=== PATIENT | female | born 1960 | race Caucasian/White ===

== ENCOUNTER 2017-02-09 20:43 | Inpatient (IN) | payer OTHER ==
[~2017-02-09] VITALS: Ht 165.1 cm; Wt 73.5 kg
--- NOTE | ~2017-02-09 | HP ---
History And Physical [id number] [place]. [address] NAME: CINDY WAN : 64 STATUS : ADM IN [facility]#: [id number] AGE: 56 ADM/REG DATE : 02/10/17 MR#: [id number] REPORT SERV DATE: 02/10/17 DICTATED BY: LOTUS AVALOS DATE: 02/10/17 REPORT STATUS : Draft TRANSCRIBED BY: DEMETRICE DATE: 02/10/17 DATE OF ADMISSION: 02/09/2017 CHIEF COMPLAINT: Coffee-grounds emesis and black stool. HISTORY OF PRESENT ILLNESS: A 56-year-old white female, on Sunday night started vomiting coffee-grounds emesis, then she noticed her stools became blackish. She thus presented to the emergency room. She has had a history of ulcers in the past. She stated she believes she had an endoscopy two months ago. She is unclear of the findings. She is on NSAIDs. PAST SURGICAL HISTORY: Rib injury, thyroid nodule, cholecystectomy, appendectomy, and ovarian cysts. ALLERGIES: SHE HAS NO KNOWN DRUG ALLERGIES. SOCIAL HISTORY: Quit smoking in 1991. No alcohol. She is a postwoman. MEDICATIONS: The patient is currently on Artificial Tears one drop daily, aspirin 650 mg b.i.d., headache powder three times a day, B-complex vitamins after lunch, cholecalciferol one tab after lunch, Lexapro 20 mg after lunch, levothyroxine 75 mg for breakfast, Prilosec 20 mg b.i.d., vitamin E one tab after lunch, lysine, and phendimetrazine two tablets t.i.d. FAMILY HISTORY: Mom of aspiration pneumonia and dad of heart attack at age 42. REVIEW OF SYSTEMS: CONSTITUTIONAL: No fever, sweats, or rigors. She has had fatigue. EYES: No blurred or double vision, vision loss, or glaucoma. HEENT: No headache, hearing loss, and tinnitus. CARDIOVASCULAR: No chest pain, palpitations, syncope, or edema. There has been some dyspnea on exertion. RESPIRATORY: No cough, wheezing, or pleuritic pain. GASTROINTESTINAL: She has had some nausea or vomiting. She has had some hematemesis, some abdominal pain. She had some melena. No hematochezia. MUSCULOSKELETAL: She does have some arthralgia, arthritis. INTEGUMENT: No rash or suspicious skin lesions. NEUROLOGIC: No memory loss, gait disturbance, or weakness. HEMATOLOGIC: She has had some anemia. She has had some iron deficiency. PSYCHIATRIC: No depression, bipolar, or anxiety. : No dysuria, hematuria, or nephrolithiasis. ENDOCRINE: There is no diabetes. There is some thyroid disease, increased cholesterol. PHYSICAL EXAMINATION: VITAL SIGNS: Blood pressure is 126/70, temperature 97.8, pulse 96, respiratory rate 20, and O2 saturation 98% on room air. CONSTITUTIONAL: Alert and appropriate. PSYCHIATRIC: Oriented x3. Memory intact. Affect appropriate. History And Physical [address] [address] NAME: CINDY WAN : 64 STATUS : ADM IN [facility]#: [id number] AGE: 56 ADM/REG DATE : 02/10/17 MR#: [id number] REPORT SERV DATE: 02/10/17 DICTATED BY: LOTUS AVALOS DATE: 02/10/17 REPORT STATUS : Draft TRANSCRIBED BY: DEMETRICE DATE: 02/10/17 HEENT: Atraumatic, normocephalic. Oral palate without lesion. EYES: Pupils reactive, anicteric. Conjunctivae clear. NECK: No adenopathy. Supple. No thyromegaly or masses. RESPIRATORY: Clear to auscultation. No chest wall tenderness. CARDIOVASCULAR: Regular rate and rhythm. No murmurs. ABDOMEN: Soft, nontender. No masses. SKIN: No rash or suspicious lesions. NEUROLOGICAL: Cranial nerves 2 through 12 intact. Deep tendon reflexes symmetric. LYMPHATIC: No adenopathy in the neck, axilla, or femoral region. MUSCULOSKELETAL: Range of motion intact to upper and lower extremities. DATA: Hemoglobin 10, platelets 306. White count 10.6. Sodium 141, potassium 4.1, BUN 19, creatinine 1.09, glucose 101. On the 11 of May, hemoglobin 13.8. CT abdomen and pelvis, nothing acute. IMPRESSION/PLAN: 1. Acute blood loss anemia. 2. Likely upper gastrointestinal bleed, IV Protonix. GI consult. NSAID avoidance. MAU/MODL Lotus Avalos MD / [id number] CC: Simin Kelley
--- NOTE | ~2017-02-09 | CN ---
Consultation Report [facility] [address] [place]. [address] NAME: CINDY WAN : 64 STATUS : DIS IN PAT#: [id number] AGE: 56 ADM/REG DATE : 02/10/17 MR#: [id number] REPORT SERV DATE: 02/12/17 DICTATED BY: TELLO HAYES DATE: 02/10/17 REPORT STATUS : Draft TRANSCRIBED BY: DEMETRICE DATE: 02/10/17 GI CONSULTATION DATE OF CONSULTATION: CHIEF COMPLAINT: Black stools. HISTORY OF PRESENT ILLNESS: This is a 56-year-old, female, who is in her good general health until Sunday when she started to feel a bit fatigued. She states that she had four episodes of vomitus, Sunday morning, was black thick looking to begin with and then progressed to an orangish black, have little bit of epigastric burning at that time, but there are no other complaints. She denies any fever, chills. She has felt slightly weak and dizzy and a little bit sweaty at that time. Denies any chest pain or shortness of breath. morning, she states that she had four loose black stools quite tarry in appearance and ranged from dark black to just black. Since then, on Sunday, she had two formed black stools and has had no further abdominal pain. The patient states that she had a thoracic strain/rib cage injury and had been on aspirin 325 mg four times a day and some sort of headache powders as well. There has been no other physical complaint. The patient states that she had an upper endoscopy with Dr. Alvarado approximately two months ago and was found to have peptic ulcer disease. She states is otherwise was unremarkable. At this time, unable to retrieve the report. PAST MEDICAL HISTORY: Significant for peptic ulcer disease, hypothyroidism, depression, and recent thoracic strain. PAST SURGICAL HISTORY: Significant for cholecystectomy, appendectomy, surgery for ovarian cyst, thyroid nodule. ALLERGIES: THERE ARE NO KNOWN DRUG ALLERGIES. SOCIAL HISTORY: She quit smoking in 1991. Denies any alcohol or illicit drug use. CURRENT MEDICATIONS: Aspirin 325 mg for daily, headache powder three times a day, over the counter vitamins, cholecalciferol one tab after lunch, Lexapro, levothyroxine, Prilosec, phendimetrazine. FAMILY HISTORY: From the GI point of view is noncontributory. REVIEW OF SYSTEMS: A 10-point review of systems was done, unless except as noted above was unremarkable. PHYSICAL EXAMINATION: Consultation Report [facility] [address] [place]. [address] NAME: CINDY WAN : 64 STATUS : DIS IN PAT#: [id number] AGE: 56 ADM/REG DATE : 02/10/17 MR#: [id number] REPORT SERV DATE: 02/12/17 DICTATED BY: TELLO HAYES DATE: 02/10/17 REPORT STATUS : Draft TRANSCRIBED BY: MODL DATE: 02/10/17 VITAL SIGNS: Blood pressure 123/57, pulse 83, respirations 16, O2 sats 96%. GENERAL APPEARANCE: Patient is alert, well hydrated, nontoxic appearing. Consistent unusual rashes are warm and dry. She is oriented x3. HEENT: Mucous membranes are moist. LUNGS: Clear to auscultation. HEART: Rate regular without murmur, rub, or gallop. ABDOMEN: Soft, nontender. Bowel sounds within normal limits x4. No mass or hepatosplenomegaly appreciated. EXTREMITIES: There is no pedal edema. DATA: CT of her abdomen and pelvis were essentially unremarkable. Her hemoglobin is 8.7, hematocrit 25.7. On admission, her hemoglobin was 10, last chart note dictated of hemoglobin was April of 2015 was 13.8. Pro time 13.3, INR 1, otherwise her white blood count was 5.9, RBCs 2.88. CMP was essentially unremarkable, except for calcium slightly low at 8.2. Her alkaline phosphatase was 135. Her salicylate level was 3.5. Liver enzymes within normal limits. Discussed case with Dr. Hayes. IMPRESSION: 1. Acute blood loss anemia secondary to upper gastrointestinal bleed. 2. Melena. 3. History of peptic ulcer disease. 4. Hypothyroidism. 5. Depression. PLAN: Discussed with patient and her . Will get consent for upper endoscopy to be done now. We will need to continue to monitor H and H. Will not transfuse at this time, but again will need to continue monitored as already ordered. We will change her Protonix or to give her additional 40 mg IV now and Protonix drip of 8 mg/hour. We will continue to follow this patient. DICTATED BY: SYED Marroquin/DEMETRICE Tello Hayes M.D. / [id number] CC: Lance Pickens MD Consultation Report [address] [place]. [address] NAME: CINDY WAN : 64 STATUS : DIS IN PAT#: [id number] AGE: 56 ADM/REG DATE : 02/10/17 MR#: [id number] REPORT SERV DATE: 02/12/17 DICTATED BY: TELLO HAYES DATE: 02/10/17 REPORT STATUS : Draft TRANSCRIBED BY: ALEXANDERL DATE: 02/10/17 Selam Kelley NP
--- NOTE | ~2017-02-09 | DS ---
Discharge Summary [facility] [address] [place]. [address] NAME: CINDY WAN : 64 STATUS : DIS IN PAT#: [id number] AGE: 56 ADM/REG DATE : 02/10/17 MR#: [id number] REPORT SERV DATE: 02/12/17 DICTATED BY: LANCE RUFFIN DATE: 02/11/17 REPORT STATUS : Draft TRANSCRIBED BY: MODNani DATE: 02/11/17 ADMISSION DATE: 02/10/2017 DISCHARGE DATE: 02/11/2017 DISCHARGE DIAGNOSES: 1. Acute blood loss anemia secondary to gastrointestinal bleed secondary to gastric ulcer. 2. Tension headache, resolved. 3. Hypothyroidism. 4. Depression. PERTINENT IMAGING AND PROCEDURES: EGD performed 02/10/2017, impression: Normal examined duodenum. Gastric ulcer biopsied, normal cardia, gastric body, and gastric fundus. Normal esophagus. HOSPITAL COURSE: Please refer to the history and physical from the admitting physician for a full history of this patient. Briefly, the patient presented with hematemesis and melena in the setting of extensive NSAID use. She was started on a Protonix drip appropriately. GI was consulted, and she within 24 hours underwent EGD which revealed a gastric ulcer that was biopsied, it was felt that most likely her ulcer is secondary to her significant NSAID use. She was continued on Protonix, transitioned over to IV dosing b.i.d. and today will be transitioned to p.o. dosing b.i.d. which she will continue until followup with GI. She has had no further bleeding since admission and her hemoglobin has been stable. Her hemoglobin on admission was 11.8, and on the day of discharge, it is 10.1. Per GI, she is stable for discharge to home and therefore will be discharged today with b.i.d. Protonix dosing with GI followup and repeat EGD in two to four weeks [address] Alvarado. She has been counseled extensively on the need to hold any further NSAIDs. She expressed understanding. The patient was continued on her home medications for hypothyroidism and depression. She did develop a headache after EGD that was diagnosed as a tension headache and treated as such with resolution. DISCHARGE MEDICATIONS: Lexapro 20 mg p.o. after lunch, Synthroid 75 mcg p.o. before breakfast, Protonix 40 mg p.o. twice per day, vitamin D3 of 1000 units one tab p.o. after lunch, vitamin E one tab p.o. after lunch, artificial tears p.r.n. daily, vitamin B tablet one tab p.o. after lunch, and lysine one capsule p.o. after lunch. FOLLOWUP: As mentioned prior, the patient will be discharged to home with b.i.d. dosing of Protonix and GI followup in two to four [address] Alvarado, at which time, discussion will take place regarding planning of a repeat EGD to ensure healing of the aforementioned gastric ulcer. As mentioned above, the patient was counseled extensively by the Hospitalist Service as well as the GI Service about the need to avoid future NSAIDs. Approximately 25 minutes were spent coordinating the discharge of this patient. Discharge Summary [address] [address] NAME: CINDY WAN : 64 STATUS : DIS IN PAT#: [id number] AGE: 56 ADM/REG DATE : 02/10/17 MR#: [id number] REPORT SERV DATE: 02/12/17 DICTATED BY: LANCE RUFFIN DATE: 02/11/17 REPORT STATUS : Draft TRANSCRIBED BY: DEMETRICE DATE: 02/11/17 SHA/DEMETRICE Lance Ruffin MD / [id number] CC: MD CELESTE Hartman CINDY MARIE
--- NOTE | ~2017-02-09 | EGD ---
EGD REPORT [facility] [address] [place] [address] NAME: CINDY WAN : 64 STATUS : ADM IN PAT#: [id number] AGE: 56 ADM/REG DATE : 02/10/17 MR#: [id number] REPORT SERV DATE: 02/10/17 DICTATED BY: JOSÉ MANUEL BERNARD DATE: 02/10/17 REPORT STATUS : Draft [facility]ANS[facility]: [facility] DATE: 02/10/17 Endoscopy Center Patient Name: Cindy Wan Date of : 1960 Attending MD: JOSÉ MANUEL BERNARD MD Procedure Date No Time: 02/10/2017 Procedure: Upper GI endoscopy Indications: Melena; Goody Powders; ASA; Prilosec 20mg daily. Patient Profile: Informed consent was obtained from the patient by me prior to the procedure. Risks, benefits, and alternatives were reviewed including the risk of bleeding, perforation, infection, reaction to medicine, missed lesion, and cardiopulmonary complications. Referring MD: MICHAEL PANDA MD Medicines: Monitored Anesthesia Care Complications: No immediate complications. Procedure: Pre-Anesthesia Assessment: - ASA Grade Assessment: III - A patient with severe systemic disease. After obtaining informed consent, the endoscope was passed under direct vision. Throughout the procedure, the patient's blood pressure, pulse, and oxygen saturations were monitored continuously. The GIF [id number] was introduced through the mouth, and advanced to the second part of duodenum. The endoscope was withdrawn with careful examination all mucosal surfaces including retroflexion stomach. The upper GI endoscopy was accomplished without difficulty. The patient tolerated the procedure well. Findings: The examined duodenum was normal. One cratered gastric ulcer with pigmented material but no VV was found at the pylorus. The lesion was 10 mm in largest dimension. Biopsies were taken with a cold forceps for histology from edges. The cardia, gastric body and gastric fundus (on retroflexion) were normal. The examined esophagus was normal except distal Schatzki ring. The esophagus and gastroesophageal junction were examined with white light. There was no visual evidence of Nam's esophagus. Impression: - Normal examined duodenum. - Gastric ulcer. Biopsied. - Normal cardia, gastric body and gastric fundus. - Normal esophagus. EGD REPORT [address] [address] NAME: CINDY WAN : 64 STATUS : ADM IN [facility]#: [id number] AGE: 56 ADM/REG DATE : 02/10/17 MR#: [id number] REPORT SERV DATE: 02/10/17 DICTATED BY: JOSÉ MANUEL BERNARD DATE: 02/10/17 REPORT STATUS : Draft TRANSCRIBED BY: [employer] DATE: 02/10/17 Recommendation: - Await pathology results. - Stop NSAID's. - Pantoprazole 40mg bid. - EGD 2-[address] Panda. Procedure Code(s): --- Professional --- 50858, Esophagogastroduodenoscopy, flexible, transoral; with biopsy, single or multiple Diagnosis Code(s): --- Professional --- K25.9, Gastric ulcer, unspecified as acute or chronic, without hemorrhage or perforation K92.1, Melena CPT copyright 2013 [employer]. All rights reserved. The codes documented in this report are preliminary and upon cnc operator machinist review may be revised to meet current compliance requirements. JOSÉ MANUEL BERNARD MD 02/10/2017 9:24 AM This report has been signed electronically. Number of Addenda: 0 Note Initiated On: 02/10/2017 8:59 AM Scope Withdrawal Time 0 hours 0 minutes 0 seconds [address] [place] [address]
[2017-02-09 21:22] LABS: BASOPHILS 0.5 %; BASOPHILS ABSOLUTE 0.05 10/3/uL (0.0-0.16); EOSINOPHILS 1.5 %; EOSINOPHILS ABSOLUTE 0.16 10/3/uL (0.0-0.53); IMMATURE GRANULOCYTES 0.4 %; IMMATURE GRANULOCYTES ABSOLUTE 0.04 10/3/uL (0.0-0.11); LYMPHOCYTES 25.7 %; LYMPHOCYTES ABSOLUTE 2.72 10/3/uL (0.67-4.30); MEAN CORPUS HGB CONC 34.2 g/dL (32.0-36.0); MEAN CORPUSCULAR HEMOGLOB 30.4 pg (26.0-34.0); MEAN PLATELET VOLUME 9.3 fL (9.2-13.0); MONOCYTES 5.7 %; NEUTROPHILS 66.2 %; NEUTROPHILS ABSOLUTE 7.03 10/3/uL (2.02-8.40); PLATELET COUNT 306 10/3/uL (150-400); RBC DISTRIBUTION WIDTH 12.6 % (12.0-16.0); WHITE BLOOD CELLS 10.6 10/3/uL (4.5-10.5)
[2017-02-09 21:23] LABS: HEMATOCRIT 29.2 % (36.0-48.0); MANUAL DIFF NO %; MEAN CORPUSCULAR VOLUME 88.8 fL (80-100); RED CELL COUNT 3.29 10/6/uL (4.0-5.6)
[2017-02-09 21:30] LABS: PARTIAL THROMBO TIME 29.6 SEC (22.5-37.2); PROTIME (NOT ORD) 13.3 SEC (12.0-14.5)
[2017-02-09 21:40] LABS: A/G RATIO 1.1 (0.7-1.9); ALBUMIN 3.4 G/DL (3.5-5.0); ALKALINE PHOSPHATASE 135 U/L (45-117); CALCIUM, SERUM 8.8 MG/DL (8.5-10.4); CHLORIDE, SERUM 105 MMOL/L (96-112); CREATININE 1.09 MG/DL (0.55-1.02); GFR AFRICAN AMERICAN 67 ML/MIN (>=60); GFR NON AFRICAN AMERICAN 58 ML/MIN (>=60); GLOBULIN 3.1 G/DL (2.5-4.1); SGOT(AST) 36 U/L (5-40); SGPT(ALT) 40 U/L (5-65); SODIUM, SERUM 141 MMOL/L (135-148); TOTAL BILIRUBIN 0.4 MG/DL (0-1.2); TOTAL PROTEIN 6.5 G/DL (6.0-8.5)
[2017-02-09 21:41] LABS: BUN (BLOOD UREA NITROGEN) 19 MG/DL (6-23); CO2 (CARBON DIOXIDE) 28 MMOL/L (24-34); GLUCOSE, SERUM 101 MG/DL (60-99); POTASSIUM, SERUM 4.1 MMOL/L (3.5-5.3)
[2017-02-09 22:11] LABS: SALICYLATE 3.5 MG/DL (-)
[2017-02-09 22:12] LABS: ACETAMINOPHEN LEVEL (TYLENOL) < 2.0 MCG/ML (10.0-20.0); ALCOHOL < 10 MG/DL (0)
[2017-02-09] MEDS ORDERED: SYN075 PO (22:32)
[2017-02-09] MEDS ORDERED: LEXAPRO20 PO (22:33)
[2017-02-09] MEDS ORDERED: PRILO PO (22:33)
[2017-02-09] MEDS ORDERED: ASA5GR PO (22:34)
[2017-02-09] MEDS ORDERED: VITAMIN D31000 UNIT PO (22:35)
[2017-02-09] MEDS ORDERED: VITAMIN E PO (22:35)
[2017-02-09] MEDS ORDERED: PHENDIMETRAZINE PO (22:38)
[2017-02-09] MEDS ORDERED: REFRESH OPH (22:40)
[2017-02-09] MEDS ORDERED: BC HEADACHE PO (22:40)
[2017-02-09] MEDS ORDERED: VITAMIN B PO (22:41)
[2017-02-09] MEDS ORDERED: L-LYSINE PO (22:46)
[2017-02-10 01:01] LABS: ASCORBIC ACID (UR NOT ORDER) NEG (NEG); BILIRUBIN, URINE NEGATIVE (NEG); ER URINALYSIS TAT 0 Hrs 00 Mins; KETONE, URINE NEGATIVE (NEG); LEUKOCYTE ESTERASE(NOT OR SMALL (NEG); NITRITE (URINE) NEG (NEG); WBC (NOT ORDERED) (RFLEX) 2 (0-5)
[2017-02-10 07:13] LABS: BASOPHILS 0.7 %; BASOPHILS ABSOLUTE 0.04 10/3/uL (0.0-0.16); EOSINOPHILS 3.7 %; EOSINOPHILS ABSOLUTE 0.22 10/3/uL (0.0-0.53); HEMOGLOBIN 8.7 g/dL (12.0-16.0); IMMATURE GRANULOCYTES 0.3 %; IMMATURE GRANULOCYTES ABSOLUTE 0.02 10/3/uL (0.0-0.11); LYMPHOCYTES 38.6 %; LYMPHOCYTES ABSOLUTE 2.29 10/3/uL (0.67-4.30); MEAN CORPUS HGB CONC 33.9 g/dL (32.0-36.0); MEAN CORPUSCULAR HEMOGLOB 30.2 pg (26.0-34.0); MEAN CORPUSCULAR VOLUME 89.2 fL (80-100); MEAN PLATELET VOLUME 9.1 fL (9.2-13.0); MONOCYTES 8.1 %; MONOCYTES ABSOLUTE 0.48 10/3/uL (0.21-1.20); NEUTROPHILS 48.6 %; NEUTROPHILS ABSOLUTE 2.88 10/3/uL (2.02-8.40); PLATELET COUNT 235 10/3/uL (150-400); RBC DISTRIBUTION WIDTH 12.9 % (12.0-16.0); RED CELL COUNT 2.88 10/6/uL (4.0-5.6)
[2017-02-10 07:14] LABS: HEMATOCRIT 25.7 % (36.0-48.0); MANUAL DIFF NO %; WHITE BLOOD CELLS 5.9 10/3/uL (4.5-10.5)
[2017-02-10 07:30] LABS: BUN (BLOOD UREA NITROGEN) 17 MG/DL (6-23); CALCIUM, SERUM 8.2 MG/DL (8.5-10.4); CHLORIDE, SERUM 111 MMOL/L (96-112); CO2 (CARBON DIOXIDE) 28 MMOL/L (24-34); GFR AFRICAN AMERICAN 97 ML/MIN (>=60); GFR NON AFRICAN AMERICAN 84 ML/MIN (>=60); GLUCOSE, SERUM 93 MG/DL (60-99); SODIUM, SERUM 145 MMOL/L (135-148)
[2017-02-10 11:15] LABS: HEMATOCRIT 26.1 % (36.0-48.0); HEMOGLOBIN 8.9 g/dL (12.0-16.0)
[2017-02-10 17:05] LABS: HEMATOCRIT 26.3 % (36.0-48.0); HEMOGLOBIN 8.7 g/dL (12.0-16.0)
[2017-02-11 00:49] LABS: HEMOGLOBIN 8.6 g/dL (12.0-16.0)
[2017-02-11 06:26] LABS: BASOPHILS 0.9 %; BASOPHILS ABSOLUTE 0.04 10/3/uL (0.0-0.16); EOSINOPHILS 3.2 %; EOSINOPHILS ABSOLUTE 0.15 10/3/uL (0.0-0.53); HEMATOCRIT 26.2 % (36.0-48.0); HEMOGLOBIN 8.6 g/dL (12.0-16.0); IMMATURE GRANULOCYTES 0.2 %; IMMATURE GRANULOCYTES ABSOLUTE 0.01 10/3/uL (0.0-0.11); LYMPHOCYTES 37.7 %; LYMPHOCYTES ABSOLUTE 1.77 10/3/uL (0.67-4.30); MEAN CORPUS HGB CONC 32.8 g/dL (32.0-36.0); MEAN CORPUSCULAR HEMOGLOB 29.9 pg (26.0-34.0); MEAN PLATELET VOLUME 9.5 fL (9.2-13.0); MONOCYTES 6.4 %; NEUTROPHILS 51.6 %; NEUTROPHILS ABSOLUTE 2.42 10/3/uL (2.02-8.40); PLATELET COUNT 236 10/3/uL (150-400); RBC DISTRIBUTION WIDTH 12.7 % (12.0-16.0); RED CELL COUNT 2.88 10/6/uL (4.0-5.6); WHITE BLOOD CELLS 4.7 10/3/uL (4.5-10.5)
[2017-02-11 06:28] LABS: MANUAL DIFF NO %
[2017-02-11 06:34] LABS: CALCIUM, SERUM 8.2 MG/DL (8.5-10.4); CHLORIDE, SERUM 110 MMOL/L (96-112); CO2 (CARBON DIOXIDE) 28 MMOL/L (24-34); CREATININE 0.64 MG/DL (0.55-1.02); GFR AFRICAN AMERICAN 117 ML/MIN (>=60); GFR NON AFRICAN AMERICAN 101 ML/MIN (>=60); GLUCOSE, SERUM 92 MG/DL (60-99); POTASSIUM, SERUM 4.2 MMOL/L (3.5-5.3); SODIUM, SERUM 143 MMOL/L (135-148)
[2017-02-11 06:36] LABS: BUN (BLOOD UREA NITROGEN) 12 MG/DL (6-23)
[2017-02-11] MEDS ORDERED: PROTONIX PO (13:27)
== END 2017-02-11 14:14 | disposition home or self-care (01) | DRG 378 ==
LOC: ER 20:43 → EDBD 20:43 → ER 20:52 → 5SO 02-10 01:46
PROVIDERS: Hospitalist; Internal Medicine; Internal Medicine Gastroenterology; Nurse Practitioner
PROC: 0DB78ZX Excision of Stomach, Pylorus, Via Natural or Artificial Opening Endoscopic, Diagnostic (ICD-10-PCS; principal; 2017-02-10 09:13)
DX: K25.4 Chronic or unspecified gastric ulcer with hemorrhage (principal); D62 Acute posthemorrhagic anemia; F32.9 Major depressive disorder, single episode, unspecified; E03.9 Hypothyroidism, unspecified; Z79.1 Long term (current) use of non-steroidal anti-inflammatories (NSAID); Z87.891 Personal history of nicotine dependence; Z79.82 Long term (current) use of aspirin
CPT/HCPCS: 36415; 74176; 80048; 80053; 80307; 81001; 83735; 85014; 85018; 85025; 85610; 85730; 86850; 86900; 86901; 87077; 87086; 87186; 88305; 93005; 96374; 99285; A9270-GY; C9113